=== PATIENT | male | born 1930 | race Native Hawaiian/Other Pacific Islander ===

== ENCOUNTER 2017-03-29 17:25 | Emergency (ER) | payer OTHER, MEDICARE ==
[~2017-03-29] VITALS: Ht 177.8 cm; Wt 68.0 kg
[2017-03-29 17:30] VITALS: TEMP 97.4
[2017-03-29] MEDS ORDERED: TAMS0.4C PO ×2 (18:38→22:32)
[2017-03-29] MEDS ORDERED: ZANTAC 75 PO ×2 (18:39→22:33)
[2017-03-29] MEDS ORDERED: NAMENDA10 MG OR (18:40)
[2017-03-29] MEDS ORDERED: RISP1TAB PO (18:43)
[2017-03-29] MEDS ORDERED: DIOVAN HC1 PO (18:44)
[2017-03-29] MEDS ORDERED: RISP0.5T2 PO ×2 (18:46→22:29)
[2017-03-29] MEDS ORDERED: TRAM50TA PO (18:47)
[2017-03-29] MEDS ORDERED: ALPR0.5T24 PO (18:50)
[2017-03-29 19:23] LABS: PLATELET COUNT 200 K/uL (142-355)
[2017-03-29 19:27] LABS: POTASSIUM 4.1 mmol/L (3.6-5.2)
[2017-03-29 21:08] VITALS: BP 122/74
[2017-03-29] MEDS ORDERED: MUCINEX600 MG PO (22:35)
[2017-03-29] MEDS ORDERED: AMOX500T5 PO (22:37)
[2017-03-29] MEDS ORDERED: LORA0.5T17 PO (22:39)
[2017-03-29] MEDS ORDERED: PROM25TA52 PO (22:41)
[2017-03-29] MEDS ORDERED: MULTIVITAMI1 PO (22:42)
[2017-03-29] MEDS ORDERED: LACTSYP31 PO (22:43)
[2017-03-29] MEDS ORDERED: FIBERCHOICE PO (22:46)
[2017-03-29] MEDS ORDERED: SUPER B-50 COMPLEX PO (22:49)
[2017-03-29] MEDS ORDERED: VITAMIN D400 UNIT PO (22:51)
[2017-03-31] MEDS ORDERED: TRAVATAN Z0.004 % OPTH (15:47)
== END 2017-03-29 21:10 | disposition other institution (70) ==
LOC: ED 17:25
PROVIDERS: Specialist
DX: F03.91 Unspecified dementia, unspecified severity, with behavioral disturbance (principal); R62.7 Adult failure to thrive
CPT/HCPCS: 80053; 81000; 83735; 84100; 85027; 93005; 99285